=== PATIENT | male | born 1995 | race Caucasian/White ===

== ENCOUNTER → 2017-01-04 | Outpatient (CLI) | payer OTHER ==
[2017-01-04 14:25] LABS: HEMATOCRIT 42.7 % (37.0-53.0); HEMOGLOBIN 14.6 g/dL (12.0-17.0); MCH 30.9 pg (27.0-34.0); MCHC 34.2 gm/dL (32.0-36.5); MCV 90.3 fl (83.0-98.0); MPV 9.8 fl (9.4-12.4); RBC 4.73 M/uL (4.00-6.00); RDW-CV 12.9 % (11.9-14.6); WBC 5.7 K/uL (4.0-11.0)
[2017-01-04 14:43] LABS: ALBUMIN 3.8 gm/dL (3.5-5.0); ANION GAP 10.8 (10.0-19.0); CALCIUM 8.2 mg/dL (8.5-10.5); CREATININE 1.4 mg/dL (0.6-1.3); POTASSIUM 3.8 mMol/L (3.7-5.1); TOTAL BILIRUBIN 0.9 mg/dL (0.0-1.5); TOTAL PROTEIN 7.1 g/dL (6.0-8.4)
== END | disposition disaster alternative care site (69) ==
LOC: GLAB 14:05
PROVIDERS: Psychiatry & Neurology Neurology
DX: K90.41 Non-celiac gluten sensitivity (principal); R21 Rash and other nonspecific skin eruption